=== PATIENT | female | born 1965 | race Caucasian/White ===

== ENCOUNTER 2023-12-02 18:00 | Emergency (ER) | payer OTHER, SELFPAY ==
[2023-12-02 18:01] VITALS: BP 146/82
--- NOTE | 2023-12-02 18:29 | ED.GENMED ---
History of Present Illness
General
Chief Complaint: Skin Problem
Source: patient and family (daughter)
Exam Limitations: none
Time Seen by Provider: 12/02/23 18:18
Travel History
Have you had any contact with someone who has COVID-19?: No
Do you have any symptoms of coronavirus? Fever > 100 degrees, chills, cough, shortness of breath, sore throat, loss of taste or smell, muscle aches, or headache?: No
History of Present Illness
History of Present Illness:
This is a 58 year old female that comes in with c/o right foot pain. States that the pain had a Bunionectomy 2 months ago. States that she has started PT for the foot. stats that since Monday the foot is swollen and she can't get a shoe on.
States that the pain is worse. States that she takes Gabapentin at HS and the Doctor increased this to BID. States that she also took the oxycodone and this did not help. States that she feels that there is a burning in the foot. States that she
has had chills. States that she gets a little dizzy with the medication. States that the pain is in the great to and the second toe. Denies any fever, chest pain, SOB, abd pain, nausea, vomiting, diarrhea, headache, urinary burning.
Past History
Past History
ED Past Medical History: None; Negative Asthma, HTN, Hypercholesterolemia or NIDDM
ED Past Surgical History: Orthopedic (Right Bunionectomy)
Social History
Tobacco: Non-smoker
Alcohol: None
Personal:
Living: with family
Review of Systems
Review of Systems
All Other Systems: ROS reviewed and negative except as documented in HPI and ROS
Constitutional: Reports chills; Denies fever
EENT: Reports no symptoms
Respiratory: Reports no symptoms; Denies cough or trouble breathing
Cardiac: Reports no symptoms; Denies chest pain
ABD/GI: Reports no symptoms; Denies abdominal pain, nausea, vomiting or diarrhea
: Reports no symptoms; Denies dysuria, frequency or urgency
Musculoskeletal: Reports no symptoms
Skin: Reports no symptoms
Neurological: Reports dizzy (Slight); Denies headache
Psychiatric: Reports no symptoms
Phy Exam
General Physical Exam
General Presentation: no apparent distress
General age: appears stated age
General Skin: warm and dry
General Habitus: normal
General Mental: alert
General Hydration: appears well hydrated
ENT Exam
ENT Exam: TM's normal, pharynx normal and neck supple
Eye Exam
Eye Exam: EOMI
Cardiovascular Exam
Cardiovascular Exam: regular rate/rhythm, no murmur and normal peripheral pulses
Pulmonary Exam
Pulmonary Exam: lungs clear, no respiratory distress, no rales, chest non tender, no crackles, no rhonchi, no wheezing and no cough
Gastrointestinal Exam
Gastrointestinal Exam: normal bowel sounds, non tender, soft, no organomegaly, no pulsatile mass and non distended
Musculoskeletal Exam
Musculoskeletal Exam: other (Swelling of the right foot and ankle. slight increased warmth but negative for any redness. )
Skin Exam
Skin Exam: normal color, warm/dry, no rash and no petechia
Psychiatric Exam
Psychiatric Exam: normal mood/affect
Course
Orders/Labs/Results
Orders:
Orders
12/02/23 18:28
Foot, Right 3 View [CR Foot - Right Min 3 Views] Urgent
Comment: Bunionectomy
Reason For Exam: Pain great to and second toe since surgery
12/02/23 18:29
Ketorolac [Toradol] 30 mg IV NOW STA
12/02/23 18:33
Dexamethasone Sod Phosphate [Decadron] 20 mg IV NOW STA
12/02/23 18:49
Complete Blood Count/With Diff Urgent
Comprehensive Metabolic Panel Urgent
Lactic Acid Urgent
Uric Acid Urgent
Comment: ADD ON
Blood Culture Q30M
JANE Source: Blood/Venous
Specimen Description:
12/02/23 18:58
Add On- LAB Urgent
Tests Added?: uric acid
12/02/23 19:00
Blood Culture Q30M
JANE Source: Blood/Venous
Specimen Description:
Abnormal Lab Results
12/02/23
18:49
Glucose 123 H mg/dl
(70-99)
12/02/23 18:49
12/02/23 18:49
Glucose nonfasting. Lactic acid normal at 1.3, Uric acid normal at 5.5
Vital Signs
Initial and Last Documented VS:
Initial Vital Signs
Temp Pulse Resp BP Pulse Ox
98.1 F 87 16 146/82 98
12/02/23 18:01 12/02/23 18:01 12/02/23 18:01 12/02/23 18:01 12/02/23 18:01
Last Documented Vital Signs
Temp Pulse Resp BP Pulse Ox
98.1 F 87 16 118/69 98
12/02/23 18:01 12/02/23 18:01 12/02/23 18:01 12/02/23 19:01 12/02/23 18:01
MDM/Problems Addressed
Differential Diagnosis Includes:
Gout, Post surgical pain,
MDM/Problems Addressed:
This is a 58 year old female that comes in with c/o right foot pain. Daughter states that she had a bunionectomy 2 months ago and has been going to PT. States that on Monday she started with pain in the foot and swelling. States that she is
unable to get a shoe on and feels like the foot is burning inside. Daughter called the Surgeon and they increased the Gabapentin to BID. States that she also took Oxycodone but this did not help.
Will get labs. X-ray of foot. Medicate for pain.
Back into see patient and Daughter. Explained that her blood work is normal and the X-ray shows some osteoarthritis. This may just be pain form PT and the surgery combined. Patient to rest over the weekend. Patient to use Tylenol 1000mg every 6
hours and Ibuprofen 600mg every 6 hours with food. Follow up with the Surgeon on Monday. Return with any concerns.
Chronic conditions affecting care:
NA
Acute Exacerbation and/or Progression of Chronic Illness:
Recent Bunionectomy
*Radiology
Radiology exam reviewed: radiology read reviewed (Foot- Postsurgical change of the first and second digits. No evidence of complication. Bony Demineralization. MIld first MTP joint osteoarthritis. )
*Pulse Oximetry
Patient hypoxic: no
*EKG
Interpreted by ED Provider?: NA
Rate: EKG- N/A
*Washer Repairman Interpretation
Rate: Washer Repairman- N/A
*Critical Care Note
Total Time (30-74mins, 75-104mins- exclusive of procedures): Not Applicable
ED Attending Note
-
Portions of this chart may have been created with voice recognition software.� Occasional wrong word or��sound alike� substitutions may have occurred due to the inherent limitations of voice recognition software.
Discharge Plan
Departure
Patient Disposition: Home (Routine Discharge)
Date of Disposition: 12/02/23
Time of Disposition: 20:14
Patient with high blood pressure during this ER visit?: No
Condition: Good
Covid-19: Not Applicable
Discharge Problem:
Foot pain, right
Instructions: Managing pain after surgery
Prescriptions:
No Action
oxycodone-acetaminophen 5-325 mg Tablet
1 tab PO BIDPRN PRN (Reason: severe pain)
gabapentin 300 mg Capsule
300 mg PO HS
cholecalciferol (vitamin D3) 25 mcg (1,000 unit) Tablet
25 mcg PO DAILY
Referrals:
Arabella Dennison MD [Family Provider] -
Activity Restrictions/Additional Instructions:
As discussed, your blood work is all normal. Your X-ray shows some Osteoarthritis and the hardware is all in place. This may just be a combination of post surgical pain and over doing in at PT. Please rest over the weekend. Elevate the foot when
sitting around. You may also take Tylenol 1000mg every 6 hours and alternate with Ibuprofen 600mg every 6 hours for pain with food. So if you take the Tylenol at 9am the ibuprofen would be due at 12 noon and then Tylenol again at 3pm and ibuprofen
at 6pm. PLEASE STOP THE NARCOTIC. You may also use Ice to the foot to help control pain. Follow up with the Surgeon on Monday. IF YOU HAVE ANY REDNESS, OR YOU HAVE ANY OTHER CONCERNS PLEASE RETURN TO THE EMERGENCY ROOM.
Interventions
Interventions:
*Risk Screen - Suicide Last Done: 12/02/23 18:01
*General Assessment Last Done: 12/02/23 18:01
*Neglect/Abuse Screening Last Done: 12/02/23 18:01
ED- Fall Risk Assessment Last Done: 12/02/23 18:57
*ED COVID-19 Vaccine History Last Done: 12/02/23 18:57
ED-Skin Assessment Last Done: 12/02/23 18:59
Discharge Date and Time
Print Language: GHANAIAN
[2023-12-02] MEDS: TORADOL 30 MG IV (18:50)
[2023-12-02 18:57] VITALS: BMI 30.7
[2023-12-02] MEDS: DECADRON 20 MG IV (19:00)
[2023-12-02 19:01] VITALS: BP 118/69
[2023-12-02 19:02] LABS: % Basophils 0.3 % (0-2); % Eosinophils 3.9 % (0-6); % Immature Granulocytes 0.1 % (0-0.5); % Lymphocytes 28.3 % (20.5-51.1); % Neutrophils 61.4 % (42.2-75.2); Absolute Eosinophils 0.3 10^3/uL (0-0.7); Absolute Lymphocytes 2.1 10^3/uL (1.2-3.4); Absolute Monocytes 0.5 10^3/uL (0.1-0.6); Absolute Neutrophils 4.6 10^3/uL (1.4-6.5); Hematocrit 37.9 % (37.0-47.0); Hemoglobin 13.3 g/dL (12.0-16.0); Mean Corp Hgb Conc. 35.1 g/dL (33.0-37.0); Mean Corpuscular Hgb 30.6 pg (27.0-31.0); Mean Corpuscular Volume 87.1 fL (81.0-99.0); Nucleated Red Blood Cells % 0 %; Platelet Count 239 10^3/uL (130-400); Red Blood Cell Count 4.35 10^6/uL (4.20-5.40); Red Cell Dist. Width 12.8 % (11.5-14.5); White Blood Cell Count 7.5 10^3/uL (4.8-10.8)
[2023-12-02 19:16] LABS: ALT (SGPT) 18 U/L (0-35); AST (SGOT) 23 U/L (14-36); Albumin 4.3 g/dl (3.5-5.0); Alkaline Phosphatase 91 U/L (38-126); Blood Urea Nitrogen 14 mg/dl (7-17); Calcium 9.7 mg/dl (8.4-10.2); Carbon Dioxide 26 mmol/L (22-30); Chloride 105 mmol/L (98-107); Estimated Creatinine Clearance 91 ml/min; Glucose 123 mg/dl (70-99); Potassium 3.8 mmol/L (3.5-5.1); Sodium 140 mmol/L (135-145); Total Bilirubin 0.3 mg/dl (0.2-1.3); Total Protein 7.1 g/dl (6.3-8.2); eGFR > 60.00
[2023-12-02 19:25] LABS: Uric Acid 5.5 mg/dl (2.5-6.2)
[2023-12-02 19:28] LABS: Lactic Acid 1.3 mmol/L (0.7-2.0)
== END 2023-12-02 21:08 | disposition home or self-care (01) ==
LOC: EMR 18:00
PROVIDERS: Clinical Nurse Specialist Family Health; EMERGENCY PHYSICIAN Emergency Medicine; FAMILY PHYSICIAN Family Medicine
DX: M79.671 Pain in right foot (principal)
CPT/HCPCS: 99284; 96374; 96375; 73630; 80053; 83605; 84550; 85025; 87040

== ENCOUNTER → 2024-06-01 09:51 | Outpatient (REF) | payer OTHER, SELFPAY | LOC: RAD 09:51 | PROVIDERS: ATTENDING PHYSICIAN Nurse Practitioner Family; FAMILY PHYSICIAN Physician Assistant | DX: M21.612 Bunion of left foot (principal); M79.622 Pain in left upper arm | CPT/HCPCS: 73030; 73060; 73630 ==